=== PATIENT | female | born 1935 | race Caucasian/White ===

== ENCOUNTER 2017-06-24 13:05 | Emergency (ER) | payer OTHER ==
[~2017-06-24 13:05] MED LIST: ACET-2743 PO; ALBU90AE IH; ASCO1TAB43 PO; CALC-1038 PO; CHOL100040 PO; CLOP75TA32 PO; DIPH25TA20 PO; ESTR1PAT87 TD; FLUTICASONE NASAL NASAL; GUAI400T79 PO; LACT1CAP62 PO; MONT10TA24 PO; OMEG1CAP67 PO; PANT20TA12 PO; SENN-107 PO; SPIRIVA RESPIMAT IH
[2017-06-24 13:42] LABS: BASOPHILS % (AUTO) 0.5 % (0.0-5.0); EOSINOPHILS % (AUTO) 0.1 % (0.0-8.0); HEMATOCRIT 37.8 % (36-48); LYMPHOCYTES % (AUTO) 2.4 % (21.0-51.0); MEAN CORPUSCULAR HEMOGLOBIN 29.7 pg (27.0-33.0); MEAN CORPUSCULAR HGB CONC 33.2 g/dL (32.0-36.0); MEAN CORPUSCULAR VOLUME 89.3 fL (79-99); MONOCYTES % (AUTO) 9.3 % (3.0-13.0); NEUTROPHILS % (AUTO) 87.7 % (40.0-77.0); NUCLEATED RED BLOOD CELLS 0.1 % (0.0-0.19); PLATELET COUNT (AUTO) 196 K/uL (130-400); RED BLOOD CELL COUNT(AUTO) 4.23 MIL/uL (4.00-5.50); RED CELL DISTRIBUTION WIDTH 14.5 % (11.0-15.5); WHITE BLOOD COUNT (AUTO) 8.9 K/uL (4.8-10.8)
[2017-06-24] MEDS ORDERED: SODIUM CHLORIDE 0.9% 1000ML 1,000 ML IV ONE ×2 (13:43→14:55)
[2017-06-24] MEDS ORDERED: ACETAMINOPHEN 325 MG TAB ONE (13:43)
[2017-06-24 13:47] LABS: CARBON DIOXIDE 28 mmol/L (21-32); CHLORIDE 97 mmol/L (101-111); CREATININE 0.7 mg/dL (0.5-1.5); GLOMERULAR FILTR. RATE CALC 85 mL/min (>60); GLUCOSE,RANDOM 115 mg/dL (70-105); POTASSIUM 3.8 mmol/L (3.5-5.1); SODIUM SERUM 131 mmol/L (136-145); UREA NITROGEN, BLOOD 10 mg/dL (7-18)
[2017-06-24 13:49] LABS: INR 0.94 (0.85-1.15); PARTIAL THROMBOPLASTIN TIME 23.8 SEC (26.3-35.5); PROTHROMBIN TIME 9.9 SEC (9.6-11.6)
[2017-06-24 13:57] LABS: APPEARANCE,URINE Clear (CLEAR); BILIRUBIN,URINE Negative (NEGATIVE); COLOR,URINE Yellow (YELLOW); GLUCOSE, URINE (UA) Negative (NEGATIVE); KETONES,URINE Negative (NEGATIVE); LEUKOCYTE ESTERASE ,URINE Small (NEGATIVE); NITRATE,URINE Negative (NEGATIVE); OCCULT BLOOD,URINE Negative (NEGATIVE); PROTEIN,URINE Trace (NEGATIVE)
[2017-06-24 14:02] LABS: ALANINE AMINOTRANSFERASE 40 U/L (12-78); ALBUMIN 3.3 g/dL (3.5-5.0); ASPARTATE AMINOTRANSFERASE 48 U/L (10-37); BILIRUBIN,TOTAL 0.2 mg/dL (0.2-1.0); CREATINE KINASE MB < 0.5 ng/mL (0.5-3.6); CREATINE KINASE, TOTAL 115 U/L (21-232); MYOGLOBIN 72 ng/mL (10-92); TOTAL PROTEIN, SERUM 6.8 g/dL (6.0-8.3); TROPONIN I < 0.04 ng/mL (0.00-0.06)
[2017-06-24 14:03] LABS: RBC,URINE None Seen /HPF (0-1)
[2017-06-24 14:04] LABS: BACTERIA,URINE Rare /HPF (None Seen); WBC,URINE 0-1 /HPF (0-1)
[2017-06-24] MEDS ORDERED: IPRATROPIUM/ALBUTEROL SULFATE 3 ML SOLUTION IH ONE (14:51)
[2017-06-24] MEDS ORDERED: METHYLPREDNISOLONE SOD SUCC 125MG/2ML VIAL ONE (14:55)
[2017-06-24] MEDS ORDERED: OSELTAMIVIR PHOSPHATE 75 MG CAP ONE (14:57)
== END 2017-06-24 17:54 | disposition home or self-care (01) ==
LOC: EDH 13:05
DX: J44.1 Chronic obstructive pulmonary disease with (acute) exacerbation (principal); J10.1 Influenza due to other identified influenza virus with other respiratory manifestations; I25.10 Atherosclerotic heart disease of native coronary artery without angina pectoris; Z88.6 Allergy status to analgesic agent; Z87.891 Personal history of nicotine dependence; Z90.49 Acquired absence of other specified parts of digestive tract; Z90.710 Acquired absence of both cervix and uterus
CPT/HCPCS: 36415; 80053; 81001; 82550; 82553; 83605; 83874; 84484; 85025; 85610; 85730; 87040 ×2; 87088; 87804 ×2; 93005; 94640; 96361; 96374; 99285; J2930; J7030 ×2; 71010

== ENCOUNTER 2017-07-31 23:46 | Observation (INO) | payer OTHER ==
[~2017-07-31] VITALS: Ht 167.6 cm; Wt 76.1 kg
[2017-08-01 00:26] LABS: RAPID GROUP A STREP NEGATIVE (NEGATIVE)
[2017-08-01] MEDS ORDERED: IPRATROPIUM/ALBUTEROL SULFATE 3 ML SOLUTION IH ONE ×2 (00:28→06:22)
[2017-08-01 00:39] LABS: ABG BASE EXCESS 0.2 mmol/L (-2.0-3.0); ABG HCO3 23.3 mmol/L (21.0-28.0); ABG OXYGEN SATURATION 93.9 % (95.0-99.0); ABG PCO2 34 mmHg (32-45)
[2017-08-01 00:40] LABS: BASOPHILS % (AUTO) 0.1 % (0.0-5.0); EOSINOPHILS % (AUTO) 0.1 % (0.0-8.0); HEMATOCRIT 36.5 % (36-48); LYMPHOCYTES % (AUTO) 3.4 % (21.0-51.0); MEAN CORPUSCULAR HEMOGLOBIN 29.1 pg (27.0-33.0); MEAN CORPUSCULAR HGB CONC 33.7 g/dL (32.0-36.0); MEAN CORPUSCULAR VOLUME 86.4 fL (79-99); MONOCYTES % (AUTO) 6.3 % (3.0-13.0); NEUTROPHILS % (AUTO) 90.1 % (40.0-77.0); PLATELET COUNT (AUTO) 375 K/uL (130-400); RED BLOOD CELL COUNT(AUTO) 4.23 MIL/uL (4.00-5.50); RED CELL DISTRIBUTION WIDTH 14.5 % (11.0-15.5); WHITE BLOOD COUNT (AUTO) 19.6 K/uL (4.8-10.8)
[2017-08-01 00:45] LABS: PARTIAL THROMBOPLASTIN TIME 26.9 SEC (26.3-35.5); PROTHROMBIN TIME 10.5 SEC (9.6-11.6)
[2017-08-01 00:54] LABS: ALBUMIN 2.6 g/dL (3.5-5.0); BILIRUBIN,TOTAL 0.8 mg/dL (0.2-1.0); CREATININE 0.7 mg/dL (0.5-1.5); POTASSIUM 3.9 mmol/L (3.5-5.1); TOTAL PROTEIN, SERUM 7.4 g/dL (6.0-8.3)
[2017-08-01 01:03] LABS: B-TYPE NATRIURETIC PEPTIDE 244 pg/mL (0-100)
[2017-08-01] MEDS ORDERED: LEVOFLOXACIN 500 MG TABLET ONE (01:29)
[2017-08-01] MEDS ORDERED: METHYLPREDNISOLONE SOD SUCC 125MG/2ML VIAL ONE (01:29)
[2017-08-01] MEDS ORDERED: ALBUTEROL SULFATE 0.083% 2.5 MG/3 ML INH IH ONE ×2 (01:42)
[2017-08-01] MEDS ORDERED: ONDANSETRON HCL 4 MG/2 ML VIAL ONE (01:43)
[2017-08-01] MEDS ORDERED: SODIUM CHLORIDE 0.9% 1000ML 1,000 ML IV SCH (02:01)
[2017-08-01] MEDS: LEVOFLOXACIN 500 MG/D5W 100 ML 100 ML IV SCH (02:15)
[2017-08-01] MEDS ORDERED: POTASSIUM CHLORIDE 10% ELIXIR 20 MEQ/15 ML UDCUP PO PRN (02:15)
[2017-08-01] MEDS ORDERED: POTASSIUM CHLORIDE 20MEQ/100ML 100 ML IV PRN (02:15)
[2017-08-01] MEDS ORDERED: POTASSIUM CHLORIDE 20 MEQ ERTAB PO PRN (02:15)
[2017-08-01] MEDS ORDERED: ACETAMINOPHEN 325 MG TAB PO PRN ×2 (02:15)
[2017-08-01] MEDS ORDERED: ONDANSETRON HCL 4 MG/2 ML VIAL IV PRN (02:15)
[2017-08-01] MEDS ORDERED: HYDRALAZINE HCL 20 MG/ML VIAL IV PRN (02:15)
[2017-08-01] MEDS ORDERED: LIDOCAINE HCL-MPF 1% 2ML VIAL IVP PRN (02:15)
[2017-08-01 06:11] LABS: HEMATOCRIT 31.3 % (36-48); MEAN CORPUSCULAR HEMOGLOBIN 29.1 pg (27.0-33.0); MEAN CORPUSCULAR HGB CONC 33.7 g/dL (32.0-36.0); MEAN CORPUSCULAR VOLUME 86.3 fL (79-99); PLATELET COUNT (AUTO) 334 K/uL (130-400); RED BLOOD CELL COUNT(AUTO) 3.62 MIL/uL (4.00-5.50); WHITE BLOOD COUNT (AUTO) 18.1 K/uL (4.8-10.8)
[2017-08-01 06:33] LABS: CREATINE KINASE MB 2.8 ng/mL (0.5-3.6); CREATININE 0.7 mg/dL (0.5-1.5); POTASSIUM 4.1 mmol/L (3.5-5.1); TROPONIN I 0.24 ng/mL (0.00-0.06)
[2017-08-01] MEDS: IPRATROPIUM/ALBUTEROL SULFATE 3 ML SOLUTION IH SCH ×4 (06:50→23:27)
[2017-08-01] MEDS: BENZONATATE 100 MG CAPSULE PO SCH ×3 (09:00→20:27)
[2017-08-01 09:06] VITALS: BP 145/73
[2017-08-01] MEDS: METHYLPREDNISOLONE SOD SUCC 125MG/2ML VIAL IV SCH ×2 (09:36→17:32)
[2017-08-01] MEDS: ENOXAPARIN SODIUM 40 MG/0.4 ML SYRINGE SQ SCH (09:38)
[2017-08-01] MEDS ORDERED: IOPAMIDOL-370 75 ML VIAL IV ONE (09:40)
[2017-08-01] MEDS ORDERED: ROSU5TAB PO (11:11)
[2017-08-01] MEDS ORDERED: ACETAMINOPHEN-CODEINE 300/30MG TAB PO PRN (11:15)
[2017-08-01] MEDS: ACETAMINOPHEN-CODEINE 300/30MG TAB PO PRN (13:21)
[2017-08-01] MEDS: FAMOTIDINE 20MG TAB 20 MG TAB PO SCH ×2 (13:50→20:27)
[2017-08-01] MEDS: SODIUM CHLORIDE 0.9% 1000ML 1,000 ML IV SCH (14:27)
[2017-08-01 16:00] VITALS: BP 138/72
[2017-08-01] MEDS: ACETYLCYSTEINE 20% 200MG/ML 4ML VIAL IH SCH ×2 (17:21→23:28)
[2017-08-01 19:28] VITALS: BP 138/71
[2017-08-01] MEDS: ATORVASTATIN CALCIUM 10 MG TABLET PO SCH (20:27)
[2017-08-01] MEDS: FLUTICASONE PROPIONATE 50MCG/SPRAY 16 GM BOTTLE EN SCH (20:27)
[2017-08-01] MEDS: GABAPENTIN 100 MG CAPSULE PO SCH (20:28)
[2017-08-01 23:18] VITALS: BP 147/66
[2017-08-02] MEDS: METHYLPREDNISOLONE SOD SUCC 125MG/2ML VIAL IV SCH ×3 (00:09→21:07)
[2017-08-02 03:00] VITALS: BP 133/58
[2017-08-02] MEDS: LEVOFLOXACIN 500 MG/D5W 100 ML 100 ML IV SCH (03:02)
[2017-08-02] MEDS: IPRATROPIUM/ALBUTEROL SULFATE 3 ML SOLUTION IH SCH ×4 (05:51→23:07)
[2017-08-02] MEDS: IPRATROPIUM 0.5 MG/2.5 ML INH IH SCH ×3 (06:00→18:00)
[2017-08-02 06:05] LABS: HEMATOCRIT 30.6 % (36-48); MEAN CORPUSCULAR VOLUME 85.8 fL (79-99); PLATELET COUNT (AUTO) 417 K/uL (130-400); RED BLOOD CELL COUNT(AUTO) 3.56 MIL/uL (4.00-5.50); RED CELL DISTRIBUTION WIDTH 14.6 % (11.0-15.5); WHITE BLOOD COUNT (AUTO) 15.7 K/uL (4.8-10.8)
[2017-08-02 06:13] LABS: CREATININE 0.8 mg/dL (0.5-1.5); POTASSIUM 4.6 mmol/L (3.5-5.1)
[2017-08-02 08:00] VITALS: BP 162/93
[2017-08-02] MEDS ORDERED: ESTRADIOL PO SCH (09:00)
[2017-08-02] MEDS: FAMOTIDINE 20MG TAB 20 MG TAB PO SCH ×2 (10:16→21:08)
[2017-08-02] MEDS: GABAPENTIN 100 MG CAPSULE PO SCH ×2 (10:16→21:08)
[2017-08-02] MEDS: BENZONATATE 100 MG CAPSULE PO SCH ×3 (10:16→21:08)
[2017-08-02] MEDS: ENOXAPARIN SODIUM 40 MG/0.4 ML SYRINGE SQ SCH (10:17)
[2017-08-02] MEDS: FLUTICASONE PROPIONATE 50MCG/SPRAY 16 GM BOTTLE EN SCH ×2 (10:17→21:06)
[2017-08-02] MEDS: MONTELUKAST SODIUM 10 MG TAB PO SCH (11:30)
[2017-08-02] MEDS: ALPRAZOLAM 0.25 MG TABLET PO PRN ×2 (11:30→21:08)
[2017-08-02] MEDS: CLOPIDOGREL BISULFATE 75 MG TAB PO SCH (11:30)
[2017-08-02 11:48] VITALS: BP 146/74
[2017-08-02 15:38] VITALS: BP 124/63
[2017-08-02] MEDS ORDERED: ACETYLCYSTEINE 20% 200MG/ML 4ML VIAL ONE (19:09)
[2017-08-02] MEDS: ACETYLCYSTEINE 20% 200MG/ML 4ML VIAL IH SCH (19:15)
[2017-08-02 19:40] VITALS: BP 116/59
[2017-08-02] MEDS: GUAIFENESIN-DM 200/20 MG 10 ML PO PRN (21:08)
[2017-08-02] MEDS: ATORVASTATIN CALCIUM 10 MG TABLET PO SCH (21:08)
[2017-08-02] MEDS: SODIUM CHLORIDE 0.9% 1000ML 1,000 ML IV SCH (21:10)
[2017-08-02 23:58] VITALS: BP 132/64
[2017-08-03] MEDS: LEVOFLOXACIN 500 MG/D5W 100 ML 100 ML IV SCH (02:23)
[2017-08-03 03:55] VITALS: BP 144/73
[2017-08-03 05:47] LABS: CREATININE 0.7 mg/dL (0.5-1.5); POTASSIUM 5.1 mmol/L (3.5-5.1)
[2017-08-03] MEDS: IPRATROPIUM 0.5 MG/2.5 ML INH IH SCH ×3 (06:00→12:00)
[2017-08-03] MEDS: IPRATROPIUM/ALBUTEROL SULFATE 3 ML SOLUTION IH SCH ×2 (07:01→11:39)
[2017-08-03 08:00] VITALS: BP 149/65
[2017-08-03] MEDS: CLOPIDOGREL BISULFATE 75 MG TAB PO SCH (08:28)
[2017-08-03] MEDS: BENZONATATE 100 MG CAPSULE PO SCH (08:29)
[2017-08-03] MEDS: GABAPENTIN 100 MG CAPSULE PO SCH (08:29)
[2017-08-03] MEDS: MONTELUKAST SODIUM 10 MG TAB PO SCH (08:29)
[2017-08-03] MEDS: FAMOTIDINE 20MG TAB 20 MG TAB PO SCH (08:29)
[2017-08-03] MEDS: GUAIFENESIN-DM 200/20 MG 10 ML PO PRN (08:29)
[2017-08-03] MEDS: METHYLPREDNISOLONE SOD SUCC 125MG/2ML VIAL IV SCH (08:30)
[2017-08-03] MEDS: ENOXAPARIN SODIUM 40 MG/0.4 ML SYRINGE SQ SCH (08:30)
[2017-08-03] MEDS: ACETAMINOPHEN-CODEINE 300/30MG TAB PO PRN (08:31)
[2017-08-03] MEDS ORDERED: LACTOBACILLUS RHAMNOSUS GG 1 EACH CAP.SPRINK PO SCH (09:00)
[2017-08-03] MEDS ORDERED: FISH OIL 1000 MG/CAP PO SCH (09:00)
[2017-08-03] MEDS ORDERED: CALCIUM CARBONATE 500 MG TABLET PO SCH (09:00)
== END 2017-08-03 13:30 | disposition home or self-care (01) ==
LOC: EDH 23:46 → EDHIP 08-01 01:20 → 4CH 08-01 08:23
PROVIDERS: ADMIT Family Medicine; ATTEND Family Medicine
DX: J18.9 Pneumonia, unspecified organism (principal); J44.1 Chronic obstructive pulmonary disease with (acute) exacerbation; I25.10 Atherosclerotic heart disease of native coronary artery without angina pectoris; J44.0 Chronic obstructive pulmonary disease with (acute) lower respiratory infection; E87.1 Hypo-osmolality and hyponatremia; Z87.891 Personal history of nicotine dependence; Z82.49 Family history of ischemic heart disease and other diseases of the circulatory system; F41.9 Anxiety disorder, unspecified
CPT/HCPCS: 36415 ×3; 36600; 71045; 71275; 80048 ×3; 80053; 82550; 82553; 82803; 83605; 83874; 83880; 84484 ×2; 85025; 85027 ×2; 85378; 85610; 85730; 87071; 87205; 87804 ×2; 87880; 93005; 94640 ×13; 94664; 94760 ×2; 96361 ×3; 96365; 96366; 96372 ×3; 96375; 96376 ×3; 99291; G0378 ×60; J1650 ×3; J1956 ×2; J2405; J2930 ×7; J7030 ×2; J7608 ×5; Q9967

== ENCOUNTER → 2017-09-07 | Outpatient (CLI) | payer OTHER ==
[~2017-09-07] MED LIST changes: +ROSU5TAB PO
== END | disposition home or self-care (01) ==
LOC: RAH 12:13
PROVIDERS: ATTEND Internal Medicine Critical Care Medicine
DX: R05 Cough (principal)
CPT/HCPCS: 71046

== ENCOUNTER → 2018-05-01 | Outpatient (CLI) | payer OTHER | END | disposition home or self-care (01) | LOC: SHCH 15:57 | PROVIDERS: ATTEND Internal Medicine Cardiovascular Disease | DX: I25.10 Atherosclerotic heart disease of native coronary artery without angina pectoris (principal) | CPT/HCPCS: 93306 ==

== ENCOUNTER → 2018-08-09 | Outpatient (CLI) | payer OTHER ==
[~2018-08-09] MED LIST changes: +AZIT250T9 PO; +BUDE10.2 IH; +CHOL400C9 PO; -CLOP75TA32 PO; +DILT180C51 PO; +DIPH50CA4 PO; +DOCU-116 PO; +ESTR1TAB21 PO; +FERR159T2 PO; +FISH1CAP49 PO; +LEVO500T2 PO; +LORA10CA PO; +METH4TAB3 PO; +POLY17PO4 PO; +PSYL3.4P5 PO; +RIVA20TA PO; +VIT1CAPS47 PO
== END | disposition home or self-care (01) ==
LOC: RAH 12:59
PROVIDERS: ATTEND Internal Medicine Critical Care Medicine
DX: R91.8 Other nonspecific abnormal finding of lung field (principal)
CPT/HCPCS: 71250

== ENCOUNTER → 2019-05-28 | Outpatient (CLI) | payer OTHER | END | disposition home or self-care (01) | LOC: RAH 13:04 | PROVIDERS: ATTEND Internal Medicine Critical Care Medicine | DX: R91.8 Other nonspecific abnormal finding of lung field (principal) | CPT/HCPCS: 71250 ==

== ENCOUNTER 2019-06-03 11:20 | Observation (INO) | payer OTHER ==
[~2019-06-03] VITALS: Ht 167.6 cm; Wt 65.9 kg
[2019-06-03 11:38] LABS: BASOPHILS % (AUTO) 0.3 % (0.0-5.0); EOSINOPHILS % (AUTO) 0.7 % (0.0-8.0); HEMATOCRIT 35.1 % (36-48); LYMPHOCYTES % (AUTO) 6.2 % (21.0-51.0); MEAN CORPUSCULAR HEMOGLOBIN 29.9 pg (27.0-33.0); MEAN CORPUSCULAR HGB CONC 32.8 g/dL (32.0-36.0); MEAN CORPUSCULAR VOLUME 91.2 fL (79-99); NEUTROPHILS % (AUTO) 85.4 % (40.0-77.0); PLATELET COUNT (AUTO) 233 K/uL (130-400); RED BLOOD CELL COUNT(AUTO) 3.85 MIL/uL (4.00-5.50); RED CELL DISTRIBUTION WIDTH 13.7 % (11.0-15.5); WHITE BLOOD COUNT (AUTO) 12.2 K/uL (4.8-10.8)
[2019-06-03 11:49] LABS: ALBUMIN 2.9 g/dL (3.5-5.0); BILIRUBIN,TOTAL 0.5 mg/dL (0.2-1.0); CREATININE 0.8 mg/dL (0.5-1.5); POTASSIUM 4.5 mmol/L (3.5-5.1); TOTAL PROTEIN, SERUM 6.5 g/dL (6.0-8.3)
[2019-06-03 11:52] LABS: INR 0.95 (0.85-1.15); PARTIAL THROMBOPLASTIN TIME 28.5 SEC (26.3-35.5)
[2019-06-03] MEDS ORDERED: ALBUTEROL SULFATE 0.083% 2.5 MG/3 ML INH IH ONE (12:25)
[2019-06-03 13:13] LABS: APPEARANCE,URINE Cloudy (CLEAR); BILIRUBIN,URINE Negative (NEGATIVE); COLOR,URINE Yellow (YELLOW); GLUCOSE, URINE (UA) Negative (NEGATIVE); KETONES,URINE Negative (NEGATIVE); LEUKOCYTE ESTERASE ,URINE Small (NEGATIVE); NITRATE,URINE Negative (NEGATIVE); OCCULT BLOOD,URINE Negative (NEGATIVE); PH,URINE 6.5 (5.0-8.0); PROTEIN,URINE Negative (NEGATIVE)
[2019-06-03] MEDS ORDERED: CEFTRIAXONE SODIUM 1 GM ONE (13:14)
[2019-06-03] MEDS ORDERED: SODIUM CHLORIDE 0.9% 50 ML IV ONE (13:15)
[2019-06-03 13:28] LABS: BACTERIA,URINE Many /HPF (None Seen); MUCUS,URINE Few LPF (None Seen); SQUAMOUS EPITHELIAL CELL,UR 0-2 /HPF (0-2)
[2019-06-03] MEDS ORDERED: AZITHROMYCIN 500MG+NS 250ML 250 ML IV ONE (13:37)
[2019-06-03] MEDS ORDERED: DiphenhydrAMINE HCL 50 MG/ML VIAL IV PRN (15:30)
[2019-06-03] MEDS ORDERED: ACETAMINOPHEN 325 MG TAB PO PRN ×2 (15:30)
[2019-06-03] MEDS ORDERED: MAG HYDROX/AL HYDROX/SIMETH ES 30 ML SUSP UDCUP PO PRN (15:30)
[2019-06-03] MEDS ORDERED: HYDRALAZINE HCL 20 MG/ML VIAL IV PRN (15:30)
[2019-06-03] MEDS ORDERED: GUAIFENESIN-DM 200/20 MG 10 ML PO PRN (15:30)
[2019-06-03] MEDS ORDERED: LACTULOSE 20 GM/30 ML UDCUP PO PRN (15:30)
[2019-06-03] MEDS ORDERED: ONDANSETRON HCL 4 MG/2 ML VIAL IV PRN (15:30)
[2019-06-03] MEDS ORDERED: POTASSIUM CHLORIDE 10% ELIXIR 20 MEQ/15 ML UDCUP PO PRN (15:30)
[2019-06-03] MEDS: AZITHROMYCIN 500MG+NS 250ML 250 ML IV SCH (15:30)
[2019-06-03] MEDS ORDERED: POTASSIUM CHLORIDE 20MEQ/100ML 100 ML IV PRN (15:30)
[2019-06-03] MEDS ORDERED: POTASSIUM CHLORIDE 20 MEQ ERTAB PO PRN (15:30)
[2019-06-03] MEDS ORDERED: LIDOCAINE HCL-MPF 1% 2ML VIAL IV PRN (15:30)
[2019-06-03] MEDS ORDERED: ZOLPIDEM TARTRATE 5 MG TAB PO PRN (15:30)
[2019-06-03] MEDS ORDERED: NITROGLYCERIN 0.4 MG SL TAB SL PRN (15:30)
[2019-06-03] MEDS: CEFTRIAXONE SODIUM 1 GM IV SCH (15:30)
[2019-06-03] MEDS ORDERED: DIPHENHYDRAMINE HCL 25 MG CAPSULE PO PRN (15:30)
[2019-06-03] MEDS ORDERED: IPRATROPIUM/ALBUTEROL SULFATE 3 ML SOLUTION IH SCH (18:00)
[2019-06-03] MEDS: IPRATROPIUM 0.5 MG/2.5 ML INH IH SCH ×2 (18:17→23:27)
[2019-06-03] MEDS ORDERED: ACETAMINOPHEN 325 MG TAB ONE (19:42)
[2019-06-03 21:15] VITALS: BP 139/65
[2019-06-03] MEDS: FUROSEMIDE 10 MG/ML 2ML VIAL IV SCH (22:17)
[2019-06-03] MEDS: BENZONATATE 100 MG CAPSULE PO SCH (22:17)
[2019-06-03] MEDS: FAMOTIDINE 20MG TAB 20 MG TAB PO SCH (22:17)
[2019-06-03] MEDS ORDERED: SODIUM CHLORIDE 3% FOR INHALATION 4 ML/AMP VIAL.NEB IH ONE (23:55)
[2019-06-04] VITALS: BP 132/58
[2019-06-04] MEDS ORDERED: SODIUM CHLORIDE 3% FOR INHALATION 4 ML/AMP VIAL.NEB IH ONE (01:41)
[2019-06-04] MEDS: IPRATROPIUM 0.5 MG/2.5 ML INH IH SCH ×4 (02:57→13:34)
[2019-06-04 04:00] VITALS: BP 145/64
[2019-06-04 05:38] LABS: BASOPHILS % (AUTO) 0.4 % (0.0-5.0); EOSINOPHILS % (AUTO) 1.3 % (0.0-8.0); HEMATOCRIT 34.5 % (36-48); LYMPHOCYTES % (AUTO) 12.1 % (21.0-51.0); MEAN CORPUSCULAR HEMOGLOBIN 29.7 pg (27.0-33.0); MEAN CORPUSCULAR HGB CONC 32.8 g/dL (32.0-36.0); MEAN CORPUSCULAR VOLUME 90.6 fL (79-99); MONOCYTES % (AUTO) 9.6 % (3.0-13.0); NEUTROPHILS % (AUTO) 76.3 % (40.0-77.0); PLATELET COUNT (AUTO) 228 K/uL (130-400); RED BLOOD CELL COUNT(AUTO) 3.81 MIL/uL (4.00-5.50); RED CELL DISTRIBUTION WIDTH 13.8 % (11.0-15.5); WHITE BLOOD COUNT (AUTO) 9.4 K/uL (4.8-10.8)
[2019-06-04 05:54] LABS: CREATININE 0.8 mg/dL (0.5-1.5); POTASSIUM 3.9 mmol/L (3.5-5.1)
[2019-06-04 08:00] VITALS: BP 157/70
[2019-06-04] MEDS ORDERED: ENOXAPARIN SODIUM 30 MG/0.3 ML SQ SCH (09:00)
[2019-06-04] MEDS ORDERED: PREDNISONE 20 MG TABLET PO SCH (09:00)
[2019-06-04] MEDS: BENZONATATE 100 MG CAPSULE PO SCH ×2 (09:18→14:53)
[2019-06-04] MEDS: FUROSEMIDE 10 MG/ML 2ML VIAL IV SCH (09:18)
[2019-06-04] MEDS: FAMOTIDINE 20MG TAB 20 MG TAB PO SCH (09:18)
[2019-06-04 11:51] VITALS: BP 136/62
--- NOTE | 2019-06-04 14:44 | NUR ---
DC PLAN PER PATIENT IS INDEPENDENT, LIVES WITH SPOUSE, NO PROVIDER OR DME, AND FEELS SAFE TO RETURN HOME. Addendum: 06/04/19 at 1444 by CONCHITA MEYER RN CM Amended: Links added.
[2019-06-04] MEDS: CEFTRIAXONE SODIUM 1 GM IV SCH (15:30)
[2019-06-04] MEDS: AZITHROMYCIN 500MG+NS 250ML 250 ML IV SCH (15:30)
--- NOTE | 2019-06-04 17:50 | NUR ---
DSICHARGE SUMMARY REVIEW WITH PT APPT . DONE TO FOLLOW WITH DR. ALMONTE IN AM CARE. ANTIBOTICS REVIEW AND SIDE EFFECTS SL TO HER RFA DC, WITH NO REDNESS NOTED OR HEMATOMA , PEDRO KENT APPLICATION ON ,DENIES ANY SOB. RELEASE ,
== END 2019-06-04 17:05 | disposition home or self-care (01) ==
LOC: EDH 11:20 → EDHIP 14:35 → INTOOBSV 14:35 → 3BH 20:51
PROVIDERS: ADMIT Internal Medicine Pulmonary Disease; ATTEND Internal Medicine Pulmonary Disease
DX: J44.0 Chronic obstructive pulmonary disease with (acute) lower respiratory infection (principal); J18.1 Lobar pneumonia, unspecified organism; N39.0 Urinary tract infection, site not specified; R91.1 Solitary pulmonary nodule; E78.5 Hyperlipidemia, unspecified; I25.10 Atherosclerotic heart disease of native coronary artery without angina pectoris; I10 Essential (primary) hypertension; I48.91 Unspecified atrial fibrillation; F17.210 Nicotine dependence, cigarettes, uncomplicated; Z79.01 Long term (current) use of anticoagulants; Z79.51 Long term (current) use of inhaled steroids; Z79.899 Other long term (current) drug therapy
CPT/HCPCS: 36415; 71045; 71046; 80048; 80053; 81001; 83880; 84484; 85025; 85610; 85730; 87040; 87071; 87077; 87088; 87186; 87205; 87804; 93005; 94640; 94664; 94667; 94668; 96372; 96374; 96376; G0378; J0456; J0696; J1650; J1940

== ENCOUNTER → 2020-08-13 | Outpatient (CLI) | payer OTHER | END | disposition home or self-care (01) | LOC: RAH 13:40 | PROVIDERS: ATTEND Internal Medicine Critical Care Medicine | DX: J47.9 Bronchiectasis, uncomplicated (principal); R91.8 Other nonspecific abnormal finding of lung field; I25.10 Atherosclerotic heart disease of native coronary artery without angina pectoris | CPT/HCPCS: 71250 ==

== ENCOUNTER → 2020-10-18 | Outpatient (CLI) | payer OTHER ==
[~2020-10-18] MED LIST changes: -ACET-2743 PO; -ALBU90AE IH; -ASCO1TAB43 PO; -AZIT250T9 PO; -BUDE10.2 IH; -CALC-1038 PO; -CHOL100040 PO; -CHOL400C9 PO; -DILT180C51 PO; -DIPH25TA20 PO; -DIPH50CA4 PO; -DOCU-116 PO; -ESTR1PAT87 TD; -ESTR1TAB21 PO; -FERR159T2 PO; -FISH1CAP49 PO; -FLUTICASONE NASAL NASAL; -GUAI400T79 PO; +IOHEXOL-350 50ML VIAL IV ONE; -LACT1CAP62 PO; -LEVO500T2 PO; -LORA10CA PO; -METH4TAB3 PO; -MONT10TA24 PO; -OMEG1CAP67 PO; -PANT20TA12 PO; -POLY17PO4 PO; -PSYL3.4P5 PO; -RIVA20TA PO; -ROSU5TAB PO; -SENN-107 PO; -SPIRIVA RESPIMAT IH; -VIT1CAPS47 PO
== END | disposition home or self-care (01) ==
LOC: RAH 08:17
PROVIDERS: ATTEND Otolaryngology
DX: M27.9 Disease of jaws, unspecified (principal); J34.2 Deviated nasal septum
CPT/HCPCS: 70488; Q9967

== ENCOUNTER 2021-07-13 10:52 | Inpatient (IN) | payer OTHER ==
[~2021-07-13] VITALS: Ht 167.6 cm; Wt 68.3 kg
[~2021-07-13 10:52] MED LIST changes: +ALBU8.5H8 IH; +AMOX-429 PO; +CALC-1125 PO; +CHOL500045 PO; +CLOP75TA32 PO; +DILT180C86 PO; +DIPH25TA20 PO; +DOCU-116 PO; +ESTR1TAB21 PO; +FERR-82 PO; +FLUT16H NASAL; +FLUT8AER2 IH; -IOHEXOL-350 50ML VIAL IV ONE; +IPRA3AMP24 IH; +L.AC1CAP6 PO; +LORA10TA7 PO; +MONT-39 PO; +OMEG-148 PO; +PANT20TA18 PO; +PRAV20TA4 PO; +PRED20TA3 PO
[2021-07-13 12:18] LABS: BASOPHILS % (AUTO) 0.1 % (0.0-5.0); EOSINOPHILS % (AUTO) 0.3 % (0.0-8.0); HEMATOCRIT 34.1 % (36-48); LYMPHOCYTES % (AUTO) 2.6 % (21.0-51.0); MEAN CORPUSCULAR HGB CONC 32.8 g/dL (32.0-36.0); MEAN CORPUSCULAR VOLUME 91.4 fL (79-99); MONOCYTES % (AUTO) 5.7 % (3.0-13.0); NEUTROPHILS % (AUTO) 90.6 % (40.0-77.0); PLATELET COUNT (AUTO) 250 K/uL (130-400); RED BLOOD CELL COUNT(AUTO) 3.73 MIL/uL (4.00-5.50); RED CELL DISTRIBUTION WIDTH 13.9 % (11.0-15.5); WHITE BLOOD COUNT (AUTO) 10.6 K/uL (4.8-10.8)
[2021-07-13 12:30] LABS: INR 0.95 (0.85-1.15); PROTHROMBIN TIME 10.4 SEC (9.6-11.6)
[2021-07-13 12:33] LABS: ALBUMIN 2.7 g/dL (3.5-5.0); BILIRUBIN,TOTAL 0.4 mg/dL (0.2-1.0); CREATININE 0.8 mg/dL (0.5-1.5); MAGNESIUM 1.6 mg/dL (1.80-2.40); POTASSIUM 4.4 mmol/L (3.5-5.1); TOTAL PROTEIN, SERUM 5.9 g/dL (6.0-8.3)
[2021-07-13] MEDS ORDERED: CLOPIDOGREL 300MG TAB PO SCH (13:00)
[2021-07-13 13:04] LABS: APPEARANCE,URINE Clear (CLEAR); BILIRUBIN,URINE Negative (NEGATIVE); COLOR,URINE Yellow (YELLOW); GLUCOSE, URINE (UA) Negative (NEGATIVE); KETONES,URINE Negative (NEGATIVE); LEUKOCYTE ESTERASE ,URINE Negative (NEGATIVE); NITRATE,URINE Negative (NEGATIVE); OCCULT BLOOD,URINE Negative (NEGATIVE); PH,URINE 6.5 (5.0-8.0); PROTEIN,URINE Negative (NEGATIVE); UROBILINOGEN,URINE 0.2 mg/dL (0.2-1.0)
[2021-07-13 13:08] LABS: B-TYPE NATRIURETIC PEPTIDE 186 pg/mL (0-100)
[2021-07-13] MEDS ORDERED: ALBUTEROL 0.083% 2.5 MG/3 ML INH IH PRN (15:30)
[2021-07-13] MEDS ORDERED: MORPHINE 2 MG SYG IVP PRN (15:30)
[2021-07-13] MEDS ORDERED: HYDRALAZINE 20MG/ML VIAL IV PRN (15:30)
[2021-07-13] MEDS ORDERED: LACTULOSE 20 GM/30 ML UDCUP PO PRN (15:30)
[2021-07-13] MEDS ORDERED: LABETALOL 20MG SYG IV PRN (15:30)
[2021-07-13] MEDS ORDERED: ACETAMINOPHEN 325 MG TAB PO PRN (15:30)
[2021-07-13] MEDS: INSULIN HUMULIN R 100 UNIT/ML 3ML SQ SCH ×2 (16:30→21:05)
[2021-07-13] MEDS ORDERED: NITROGLYCERIN PATCH 0.2 MG/HR TD PRN (16:30)
[2021-07-13] MEDS ORDERED: GUAIFENESIN-DM 200/20 MG 10 ML ONE (17:36)
[2021-07-13] MEDS: METOPROLOL TARTRATE 25 MG TAB PO SCH (21:04)
[2021-07-13] MEDS: SIMVASTATIN 20 MG TABLET PO SCH (21:04)
[2021-07-13] MEDS: ENOXAPARIN SODIUM 80 MG/0.8 ML SQ SCH (21:06)
[2021-07-14] VITALS (13 sets, daily range): BP systolic 131–166; BP diastolic 50–87
[2021-07-14] MEDS: GUAIFENESIN-DM 200/20 MG 10 ML PO PRN (02:41)
[2021-07-14] MEDS: INSULIN HUMULIN R 100 UNIT/ML 3ML SQ SCH ×2 (06:10→21:20)
[2021-07-14 06:49] LABS: BASOPHILS % (AUTO) 0.4 % (0.0-5.0); EOSINOPHILS % (AUTO) 1.6 % (0.0-8.0); LYMPHOCYTES % (AUTO) 7.8 % (21.0-51.0); MEAN CORPUSCULAR HEMOGLOBIN 29.2 pg (27.0-33.0); MEAN CORPUSCULAR VOLUME 91.1 fL (79-99); MONOCYTES % (AUTO) 6.5 % (3.0-13.0); NEUTROPHILS % (AUTO) 82.9 % (40.0-77.0); PLATELET COUNT (AUTO) 245 K/uL (130-400); RED BLOOD CELL COUNT(AUTO) 3.84 MIL/uL (4.00-5.50); RED CELL DISTRIBUTION WIDTH 13.9 % (11.0-15.5); WHITE BLOOD COUNT (AUTO) 7.5 K/uL (4.8-10.8)
[2021-07-14 07:16] LABS: CREATININE 0.7 mg/dL (0.5-1.5); MAGNESIUM 1.5 mg/dL (1.80-2.40); PHOSPHORUS 3.3 mg/dL (2.5-4.9); POTASSIUM 4.1 mmol/L (3.5-5.1); THYROID STIMULATING HORMONE 1.43 uIU/mL (0.36-3.74)
[2021-07-14] MEDS: CLOPIDOGREL 75MG TAB PO SCH (09:00)
[2021-07-14] MEDS: ENOXAPARIN SODIUM 80 MG/0.8 ML SQ SCH (09:00)
[2021-07-14] MEDS: METOPROLOL TARTRATE 25 MG TAB PO SCH ×2 (09:00→20:35)
[2021-07-14] MEDS ORDERED: NITROGLYCERIN 50MG VIAL ONE (16:22)
[2021-07-14] MEDS ORDERED: FENTANYL CITRATE PF 50 MCG/1 ML 2ML VIAL ONE (16:22)
[2021-07-14] MEDS ORDERED: IOHEXOL-350 50ML VIAL IV ONE ×2 (16:22→17:21)
[2021-07-14] MEDS ORDERED: IOHEXOL 350 MG/ML 100ML INFUS..BTL IV ONE ×2 (16:22→17:23)
[2021-07-14] MEDS ORDERED: NICARDIPINE 25MG INJ IV ONE ×2 (16:22→16:58)
[2021-07-14] MEDS ORDERED: MIDAZOLAM HCL 1 MG/ML 2ML VIAL ONE (16:22)
[2021-07-14] MEDS ORDERED: BUPIVACAINE/PF 0.25% 10ML VIAL IJ ONE (16:22)
[2021-07-14] MEDS ORDERED: LIDOCAINE HCL 400MG/20ML VIAL ONE (16:23)
[2021-07-14] MEDS ORDERED: 0.9%NACL 1000ML 1,000 ML IV SCH (18:00)
[2021-07-14] MEDS ORDERED: BENZONATATE 100 MG CAPSULE PO PRN (19:00)
[2021-07-14] MEDS: SIMVASTATIN 20 MG TABLET PO SCH (20:36)
[2021-07-15 00:12] VITALS: BP 139/57
[2021-07-15 04:16] VITALS: BP 161/82
[2021-07-15 05:09] LABS: BASOPHILS % (AUTO) 0.3 % (0.0-5.0); EOSINOPHILS % (AUTO) 1.4 % (0.0-8.0); HEMATOCRIT 35.3 % (36-48); LYMPHOCYTES % (AUTO) 7.4 % (21.0-51.0); MEAN CORPUSCULAR HEMOGLOBIN 29.2 pg (27.0-33.0); MEAN CORPUSCULAR HGB CONC 31.7 g/dL (32.0-36.0); MEAN CORPUSCULAR VOLUME 91.9 fL (79-99); MONOCYTES % (AUTO) 6.7 % (3.0-13.0); NEUTROPHILS % (AUTO) 83.5 % (40.0-77.0); PLATELET COUNT (AUTO) 253 K/uL (130-400); RED BLOOD CELL COUNT(AUTO) 3.84 MIL/uL (4.00-5.50); RED CELL DISTRIBUTION WIDTH 13.7 % (11.0-15.5); WHITE BLOOD COUNT (AUTO) 6.9 K/uL (4.8-10.8)
[2021-07-15 05:24] LABS: ALBUMIN 2.2 g/dL (3.5-5.0); BILIRUBIN,TOTAL 0.4 mg/dL (0.2-1.0); CREATININE 0.7 mg/dL (0.5-1.5); POTASSIUM 4.3 mmol/L (3.5-5.1); TOTAL PROTEIN, SERUM 5.4 g/dL (6.0-8.3)
[2021-07-15] MEDS: INSULIN HUMULIN R 100 UNIT/ML 3ML SQ SCH ×4 (06:39→20:12)
[2021-07-15] MEDS: CLOPIDOGREL 75MG TAB PO SCH (10:07)
[2021-07-15] MEDS: METOPROLOL TARTRATE 25 MG TAB PO SCH ×2 (10:07→20:18)
[2021-07-15 11:52] VITALS: BP 122/76
[2021-07-15] MEDS: LACTULOSE 20 GM/30 ML UDCUP PO SCH ×2 (12:16→16:23)
[2021-07-15 16:50] VITALS: BP 152/79
[2021-07-15 16:51] VITALS: BP 125/55
[2021-07-15 20:00] VITALS: BP 128/58
[2021-07-15] MEDS ORDERED: TEMAZEPAM 15 MG CAPSULE ONE (20:14)
[2021-07-15] MEDS: SIMVASTATIN 20 MG TABLET PO SCH (20:19)
[2021-07-15] MEDS ORDERED: TEMAZEPAM 15 MG CAPSULE PO ONE (20:30)
[2021-07-16] VITALS: BP 140/55
[2021-07-16] MEDS: GUAIFENESIN-DM 200/20 MG 10 ML PO PRN ×2 (02:51→10:44)
[2021-07-16 04:00] VITALS: BP 126/60
[2021-07-16 05:08] LABS: BASOPHILS % (AUTO) 0.5 % (0.0-5.0); EOSINOPHILS % (AUTO) 2.2 % (0.0-8.0); HEMATOCRIT 32.2 % (36-48); LYMPHOCYTES % (AUTO) 6.3 % (21.0-51.0); MEAN CORPUSCULAR HEMOGLOBIN 29.1 pg (27.0-33.0); MEAN CORPUSCULAR HGB CONC 32.9 g/dL (32.0-36.0); MEAN CORPUSCULAR VOLUME 88.5 fL (79-99); NEUTROPHILS % (AUTO) 84.1 % (40.0-77.0); PLATELET COUNT (AUTO) 227 K/uL (130-400); RED BLOOD CELL COUNT(AUTO) 3.64 MIL/uL (4.00-5.50); RED CELL DISTRIBUTION WIDTH 13.2 % (11.0-15.5); WHITE BLOOD COUNT (AUTO) 6.5 K/uL (4.8-10.8)
[2021-07-16 05:20] LABS: ALBUMIN 2.1 g/dL (3.5-5.0); BILIRUBIN,TOTAL 0.3 mg/dL (0.2-1.0); CREATININE 0.7 mg/dL (0.5-1.5); POTASSIUM 4.4 mmol/L (3.5-5.1); TOTAL PROTEIN, SERUM 5.2 g/dL (6.0-8.3)
[2021-07-16] MEDS: LACTULOSE 20 GM/30 ML UDCUP PO SCH ×3 (05:27→11:44)
[2021-07-16] MEDS: INSULIN HUMULIN R 100 UNIT/ML 3ML SQ SCH ×2 (06:41→11:30)
[2021-07-16 08:00] VITALS: BP 144/63
[2021-07-16] MEDS ORDERED: METO25 PO (08:35)
[2021-07-16] MEDS ORDERED: Isosorbide Mono 30MG Sr Tab PO (08:35)
[2021-07-16] MEDS ORDERED: NITR0.4T SL (08:35)
[2021-07-16] MEDS ORDERED: ISOSORBIDE MONO 30MG SR TAB PO SCH (09:00)
[2021-07-16] MEDS: CLOPIDOGREL 75MG TAB PO SCH (10:09)
[2021-07-16] MEDS: METOPROLOL TARTRATE 25 MG TAB PO SCH (10:09)
[2021-07-16 12:00] VITALS: BP 114/62
== END 2021-07-16 15:30 | disposition home or self-care (01) | DRG 281 ==
LOC: EDH 10:52 → EDHIP 15:02 → OBSVTOIN 15:02 → 3CH 07-14 03:48 → 4CH 07-14 18:22
PROVIDERS: ADMIT Internal Medicine; ATTEND Internal Medicine
PROC: 4A023N7 Measurement of Cardiac Sampling and Pressure, Left Heart, Percutaneous Approach (ICD-10-PCS; principal; 2021-07-14)
PROC: B2111ZZ Fluoroscopy of Multiple Coronary Arteries using Low Osmolar Contrast (ICD-10-PCS; 2021-07-14)
PROC: B2151ZZ Fluoroscopy of Left Heart using Low Osmolar Contrast (ICD-10-PCS; 2021-07-14)
DX: I21.4 Non-ST elevation (NSTEMI) myocardial infarction (principal); E87.1 Hypo-osmolality and hyponatremia; I50.32 Chronic diastolic (congestive) heart failure; I47.1 Supraventricular tachycardia; J44.9 Chronic obstructive pulmonary disease, unspecified; I25.10 Atherosclerotic heart disease of native coronary artery without angina pectoris; I44.7 Left bundle-branch block, unspecified; Z96.1 Presence of intraocular lens; E78.5 Hyperlipidemia, unspecified; Z20.822 Contact with and (suspected) exposure to COVID-19; I48.0 Paroxysmal atrial fibrillation; K59.00 Constipation, unspecified; I11.0 Hypertensive heart disease with heart failure; E78.00 Pure hypercholesterolemia, unspecified; I35.0 Nonrheumatic aortic (valve) stenosis; I25.2 Old myocardial infarction; Z98.42 Cataract extraction status, left eye; Z98.41 Cataract extraction status, right eye; Z98.1 Arthrodesis status; Z87.01 Personal history of pneumonia (recurrent); Z95.5 Presence of coronary angioplasty implant and graft; Z87.891 Personal history of nicotine dependence; Z79.02 Long term (current) use of antithrombotics/antiplatelets; Z79.899 Other long term (current) drug therapy; Z88.6 Allergy status to analgesic agent; Z88.8 Allergy status to other drugs, medicaments and biological substances; Z90.710 Acquired absence of both cervix and uterus; Z90.49 Acquired absence of other specified parts of digestive tract
CPT/HCPCS: 36415; 71045; 80048; 80053; 81003; 82550; 82948; 83735; 83874; 83880; 84100; 84443; 84484; 85025; 85610; 87635; 87804; 93005; 93458; 94664; 99156; 99157; 99291; C9803; G0378; J1644; J1650; J1815; J2250; J3010; J3490; Q9967

== ENCOUNTER 2021-07-18 12:33 | Observation (INO) | payer OTHER ==
[~2021-07-18] VITALS: Ht 167.6 cm; Wt 73.1 kg
[~2021-07-18 12:33] MED LIST changes: -DILT180C86 PO; +Isosorbide Mono 30MG Sr Tab PO; +METO25 PO; +NITR0.4T SL
[2021-07-18] MEDS ORDERED: CEFTRIAXONE 1G VIAL IVP ONE (13:00)
[2021-07-18] MEDS ORDERED: AZITHROMYCIN 250 MG TABLET PO ONE (13:00)
[2021-07-18] MEDS ORDERED: ACETAMINOPHEN WITH CODEINE 1 TAB TAB PO ONE ×2 (13:00→20:30)
[2021-07-18] MEDS ORDERED: ACETAMINOPHEN WITH CODEINE 1 TAB TAB ONE (13:01)
[2021-07-18 13:11] LABS: ABG BASE EXCESS 0.2 mmol/L (-2.0-3.0); ABG HCO3 23.1 mmol/L (21.0-28.0); ABG OXYGEN SATURATION 95.1 % (95.0-99.0); ABG PCO2 33 mmHg (32-45)
[2021-07-18] MEDS ORDERED: IPRATROPIUM/ALBUTEROL SULFATE 3 ML SOLUTION IH ONE ×2 (13:14→13:30)
[2021-07-18 13:20] LABS: HEMATOCRIT 32.6 % (36-48); MEAN CORPUSCULAR HEMOGLOBIN 28.7 pg (27.0-33.0); MEAN CORPUSCULAR HGB CONC 32.8 g/dL (32.0-36.0); MEAN CORPUSCULAR VOLUME 87.4 fL (79-99); PLATELET COUNT (AUTO) 274 K/uL (130-400); RED BLOOD CELL COUNT(AUTO) 3.73 MIL/uL (4.00-5.50); RED CELL DISTRIBUTION WIDTH 13.2 % (11.0-15.5); WHITE BLOOD COUNT (AUTO) 9.3 K/uL (4.8-10.8)
[2021-07-18 13:37] LABS: CREATININE 0.7 mg/dL (0.5-1.5); POTASSIUM 4.9 mmol/L (3.5-5.1)
[2021-07-18 13:41] LABS: ALBUMIN 2.2 g/dL (3.5-5.0); BILIRUBIN,TOTAL 0.5 mg/dL (0.2-1.0); CRP QUANTITATIVE 110.2 mg/L (0.00-9.0); TOTAL PROTEIN, SERUM 5.9 g/dL (6.0-8.3)
[2021-07-18 14:04] LABS: B-TYPE NATRIURETIC PEPTIDE 267 pg/mL (0-100)
[2021-07-18 14:06] LABS: EOSINOPHILS % (MANUAL) 1 % (1-6); LYMPHOCYTES % (MANUAL) 4 % (22-44); MAN.DIFF COMMENT-IMPRESSION MANUAL DIFFERENTIAL; MONOCYTES % (MANUAL) 8 % (2-9); PLATELET MORPHOLOGY COMMENT ADEQUATE; SEGMENTED NEUTROPHILS % 87 % (40-70)
[2021-07-18 14:16] LABS: INFLUENZA TYPE A NEGATIVE FOR TYPE A (NEG); INFLUENZA TYPE B NEGATIVE FOR TYPE B (NEG)
[2021-07-18] MEDS: 0.9%NACL 1000ML 1,000 ML IV SCH ×2 (14:52→21:06)
[2021-07-18] MEDS ORDERED: ONDANSETRON 4MG INJ IVP PRN (15:00)
[2021-07-18] MEDS ORDERED: HYDRALAZINE 20MG/ML VIAL IV PRN (15:00)
[2021-07-18] MEDS ORDERED: LABETALOL 20MG SYG IV PRN (15:00)
[2021-07-18] MEDS ORDERED: LACTULOSE 20 GM/30 ML UDCUP PO PRN (15:00)
[2021-07-18] MEDS ORDERED: ALBUTEROL 0.083% 2.5 MG/3 ML INH IH PRN (15:00)
[2021-07-18] MEDS: INSULIN HUMULIN R 100 UNIT/ML 3ML SQ SCH ×2 (16:30→20:17)
[2021-07-18] MEDS: DEXAMETHASONE SOD PHOSPHATE 4 MG/ML 1ML VIAL IVP SCH (22:18)
[2021-07-18 23:49] LABS: APPEARANCE,URINE Clear (CLEAR); BILIRUBIN,URINE Negative (NEGATIVE); COLOR,URINE Yellow (YELLOW); GLUCOSE, URINE (UA) Negative (NEGATIVE); KETONES,URINE Negative (NEGATIVE); LEUKOCYTE ESTERASE ,URINE Negative (NEGATIVE); NITRATE,URINE Negative (NEGATIVE); OCCULT BLOOD,URINE Negative (NEGATIVE); PH,URINE 6.5 (5.0-8.0); PROTEIN,URINE Negative (NEGATIVE)
[2021-07-19] MEDS: GUAIFENESIN-DM 200/20 MG 10 ML PO PRN ×2 (00:31→05:37)
[2021-07-19] MEDS: ALBUTEROL 0.083% 2.5 MG/3 ML INH IH SCH ×5 (00:55→23:32)
[2021-07-19 04:46] LABS: BASOPHILS % (AUTO) 0.2 % (0.0-5.0); HEMATOCRIT 26.6 % (36-48); LYMPHOCYTES % (AUTO) 1.8 % (21.0-51.0); MEAN CORPUSCULAR HEMOGLOBIN 28.7 pg (27.0-33.0); MEAN CORPUSCULAR HGB CONC 32.7 g/dL (32.0-36.0); MEAN CORPUSCULAR VOLUME 87.8 fL (79-99); MONOCYTES % (AUTO) 1.5 % (3.0-13.0); NEUTROPHILS % (AUTO) 95.8 % (40.0-77.0); PLATELET COUNT (AUTO) 300 K/uL (130-400); RED BLOOD CELL COUNT(AUTO) 3.03 MIL/uL (4.00-5.50); RED CELL DISTRIBUTION WIDTH 13.5 % (11.0-15.5)
[2021-07-19 04:51] LABS: CREATININE 0.5 mg/dL (0.5-1.5); MAGNESIUM 1.7 mg/dL (1.80-2.40); PHOSPHORUS 4.2 mg/dL (2.5-4.9); POTASSIUM 4.8 mmol/L (3.5-5.1)
[2021-07-19] MEDS: 0.9%NACL 1000ML 1,000 ML IV SCH (07:00)
[2021-07-19] MEDS: INSULIN HUMULIN R 100 UNIT/ML 3ML SQ SCH ×4 (07:29→20:58)
[2021-07-19] MEDS ORDERED: 0.9% NACL 250ML 250 ML ONE (07:51)
[2021-07-19] MEDS ORDERED: KCL 20 MEQ ERTAB PO PRN (08:00)
[2021-07-19] MEDS ORDERED: LIDOCAINE HCL-MPF 1% 2ML VIAL IV PRN ×2 (08:00)
[2021-07-19] MEDS ORDERED: POTASSIUM CHLORIDE 10% ELIXIR 20 MEQ/15 ML UDCUP PO PRN (08:00)
[2021-07-19] MEDS ORDERED: POTASSIUM CHLORIDE 20MEQ/100ML 100 ML IV PRN ×2 (08:00)
[2021-07-19] MEDS ORDERED: MAGNESIUM 2GM PREMIX 50ML 50 ML IV PRN (08:00)
[2021-07-19] MEDS: PANTOPRAZOLE 40 MG TAB DR PO SCH (08:03)
[2021-07-19] MEDS: ACETAMINOPHEN 325 MG TAB PO PRN (08:41)
[2021-07-19] MEDS ORDERED: AZITHROMYCIN 500MG+NS 250ML IV SCH (09:00)
[2021-07-19] MEDS ORDERED: ENOXAPARIN SODIUM 30 MG/0.3 ML SQ SCH (09:00)
[2021-07-19 09:21] VITALS: BP 150/79
[2021-07-19] MEDS ORDERED: FURO20TA4 PO (09:23)
[2021-07-19] MEDS ORDERED: FLUT1BLS15 PO (09:23)
[2021-07-19 11:06] VITALS: BP 141/70
[2021-07-19 16:25] VITALS: BP 137/65
[2021-07-19] MEDS: FUROSEMIDE 40MG VIAL IV SCH (17:31)
[2021-07-19] MEDS ORDERED: IOHEXOL 350 MG/ML 100ML INFUS..BTL IV ONE (17:55)
[2021-07-19] MEDS: NITROGLYCERIN 1GM OINT 1 INCH/1GM TD SCH (19:30)
[2021-07-19 20:00] VITALS: BP 117/64
[2021-07-19] MEDS: DEXAMETHASONE SOD PHOSPHATE 4 MG/ML 1ML VIAL IVP SCH (20:59)
[2021-07-20] VITALS (7 sets, daily range): BP systolic 100–156; BP diastolic 42–73
[2021-07-20] MEDS: FUROSEMIDE 40MG VIAL IV SCH ×2 (04:20→18:40)
[2021-07-20] MEDS: NITROGLYCERIN 1GM OINT 1 INCH/1GM TD SCH ×3 (04:21→20:49)
[2021-07-20 05:58] LABS: HEMATOCRIT 31.7 % (36-48); MEAN CORPUSCULAR HEMOGLOBIN 28.9 pg (27.0-33.0); MEAN CORPUSCULAR HGB CONC 32.5 g/dL (32.0-36.0); MEAN CORPUSCULAR VOLUME 88.8 fL (79-99); RED BLOOD CELL COUNT(AUTO) 3.57 MIL/uL (4.00-5.50); RED CELL DISTRIBUTION WIDTH 13.3 % (11.0-15.5); WHITE BLOOD COUNT (AUTO) 8.4 K/uL (4.8-10.8)
[2021-07-20] MEDS: ALBUTEROL 0.083% 2.5 MG/3 ML INH IH SCH ×3 (06:00→18:00)
[2021-07-20] MEDS: IPRATROPIUM/ALBUTEROL SULFATE 3 ML SOLUTION IH SCH ×4 (06:25→18:34)
[2021-07-20 06:32] LABS: CREATININE 0.8 mg/dL (0.5-1.5); MAGNESIUM 1.8 mg/dL (1.80-2.40); PHOSPHORUS 4.6 mg/dL (2.5-4.9); POTASSIUM 5.1 mmol/L (3.5-5.1)
[2021-07-20] MEDS: INSULIN HUMULIN R 100 UNIT/ML 3ML SQ SCH ×4 (07:30→21:00)
[2021-07-20] MEDS: PANTOPRAZOLE 40 MG TAB DR PO SCH ×2 (08:48→20:48)
[2021-07-20] MEDS: LEVOFLOXACIN 500 MG TABLET PO SCH (08:48)
[2021-07-20] MEDS: ENOXAPARIN SODIUM 40 MG/0.4 ML SYRINGE SQ SCH (08:50)
[2021-07-20] MEDS: FLUTICASONE/VILANTEROL 1 EACH AER.POW.BA IH SCH (09:00)
[2021-07-20] MEDS: GUAIFENESIN-DM 200/20 MG 10 ML PO PRN (09:29)
[2021-07-20] MEDS ORDERED: LEVO500T90 PO (11:46)
[2021-07-20] MEDS ORDERED: DEXA6TAB PO (11:46)
[2021-07-20] MEDS ORDERED: GUAI5SYR PO (11:46)
[2021-07-20] MEDS ORDERED: IPRA3AMP24 IH (11:46)
[2021-07-20] MEDS: DOXYCYCLINE HYCLATE 100 MG TABLET PO SCH ×2 (14:38→20:48)
[2021-07-20] MEDS: DEXAMETHASONE SOD PHOSPHATE 4 MG/ML 1ML VIAL IVP SCH (20:49)
[2021-07-21] MEDS: IPRATROPIUM/ALBUTEROL SULFATE 3 ML SOLUTION IH SCH ×5 (00:30→23:15)
[2021-07-21 03:28] VITALS: BP 128/60
[2021-07-21] MEDS: NITROGLYCERIN 1GM OINT 1 INCH/1GM TD SCH ×3 (04:30→20:02)
[2021-07-21] MEDS: FUROSEMIDE 40MG VIAL IV SCH ×2 (06:09→14:21)
[2021-07-21] MEDS: INSULIN HUMULIN R 100 UNIT/ML 3ML SQ SCH ×4 (07:06→21:00)
[2021-07-21] MEDS: GUAIFENESIN-DM 200/20 MG 10 ML PO PRN (07:33)
[2021-07-21 07:50] VITALS: BP 140/66
[2021-07-21] MEDS: DOXYCYCLINE HYCLATE 100 MG TABLET PO SCH ×2 (08:22→20:02)
[2021-07-21] MEDS: LEVOFLOXACIN 500 MG TABLET PO SCH (08:22)
[2021-07-21] MEDS: PANTOPRAZOLE 40 MG TAB DR PO SCH ×2 (08:22→20:02)
[2021-07-21] MEDS: ENOXAPARIN SODIUM 40 MG/0.4 ML SYRINGE SQ SCH (08:27)
[2021-07-21] MEDS: FLUTICASONE/VILANTEROL 1 EACH AER.POW.BA IH SCH (09:00)
[2021-07-21 11:20] VITALS: BP 141/63
[2021-07-21 15:15] VITALS: BP 132/68
[2021-07-21 19:30] VITALS: BP 104/46
[2021-07-21] MEDS: DEXAMETHASONE SOD PHOSPHATE 4 MG/ML 1ML VIAL IVP SCH (20:03)
[2021-07-22 00:19] VITALS: BP 107/51
[2021-07-22] MEDS: FUROSEMIDE 40MG VIAL IV SCH (03:39)
[2021-07-22] MEDS: NITROGLYCERIN 1GM OINT 1 INCH/1GM TD SCH ×2 (03:40→13:55)
[2021-07-22 04:33] VITALS: BP 130/56
[2021-07-22] MEDS: ALBUTEROL 0.083% 2.5 MG/3 ML INH IH SCH ×2 (06:00→11:51)
[2021-07-22] MEDS: INSULIN HUMULIN R 100 UNIT/ML 3ML SQ SCH ×2 (06:04→11:30)
[2021-07-22] MEDS: IPRATROPIUM/ALBUTEROL SULFATE 3 ML SOLUTION IH SCH ×2 (07:05→11:53)
[2021-07-22 08:00] VITALS: BP 134/71
[2021-07-22] MEDS: FLUTICASONE/VILANTEROL 1 EACH AER.POW.BA IH SCH ×2 (09:00→09:25)
[2021-07-22] MEDS: PANTOPRAZOLE 40 MG TAB DR PO SCH (09:26)
[2021-07-22] MEDS: LEVOFLOXACIN 500 MG TABLET PO SCH (09:26)
[2021-07-22] MEDS: DOXYCYCLINE HYCLATE 100 MG TABLET PO SCH (09:26)
[2021-07-22] MEDS: ENOXAPARIN SODIUM 40 MG/0.4 ML SYRINGE SQ SCH (09:27)
[2021-07-22] MEDS: ACETAMINOPHEN 325 MG TAB PO PRN (09:47)
[2021-07-22 12:00] VITALS: BP 121/56
== END 2021-07-22 15:20 | disposition home or self-care (01) ==
LOC: EDH 12:33 → EDHIP 14:56 → 3BH 07-19 09:01
PROVIDERS: ADMIT Internal Medicine; ATTEND Internal Medicine
DX: J44.1 Chronic obstructive pulmonary disease with (acute) exacerbation (principal); I25.2 Old myocardial infarction; I48.91 Unspecified atrial fibrillation; K59.00 Constipation, unspecified; R09.02 Hypoxemia; J44.0 Chronic obstructive pulmonary disease with (acute) lower respiratory infection; I25.10 Atherosclerotic heart disease of native coronary artery without angina pectoris; E87.1 Hypo-osmolality and hyponatremia; E78.00 Pure hypercholesterolemia, unspecified; I10 Essential (primary) hypertension; D64.9 Anemia, unspecified; Z20.822 Contact with and (suspected) exposure to COVID-19; Z79.02 Long term (current) use of antithrombotics/antiplatelets; Z90.710 Acquired absence of both cervix and uterus; Z95.5 Presence of coronary angioplasty implant and graft; Z96.1 Presence of intraocular lens; Z98.1 Arthrodesis status; Z79.899 Other long term (current) drug therapy; E86.0 Dehydration
CPT/HCPCS: 36415 ×3; 36600; 71045 ×2; 71275; 80048 ×2; 80053; 81003; 82803; 82948 ×15; 83605; 83735 ×2; 83880; 84100 ×2; 84145 ×2; 84484; 85025 ×2; 85027; 86140; 87040 ×2; 87635; 87804 ×2; 87880; 93005; 94640 ×17; 94664; 94760 ×3; 96361 ×2; 96365; 96366; 96372; 96375; 97039 ×4; 97116 ×3; 97161; 99285; C9803; G0378 ×90; J0456; J0696; J1100 ×4; J1650 ×4; J1940 ×7; J7030 ×2; J7050; Q9967; 87088

== ENCOUNTER → 2021-08-18 | Outpatient (CLI) | payer OTHER ==
[~2021-08-18] MED LIST changes: -AMOX-429 PO; +DEXA6TAB PO; -FLUT16H NASAL; +FLUT1BLS15 PO; -FLUT8AER2 IH; +FURO20TA4 PO; +GUAI5SYR PO; +LEVO500T90 PO; -PRED20TA3 PO
== END | disposition home or self-care (01) ==
LOC: RAH 14:16
PROVIDERS: ATTEND Internal Medicine Critical Care Medicine
DX: J18.9 Pneumonia, unspecified organism (principal); U09.9 Post COVID-19 condition, unspecified; J98.4 Other disorders of lung; J98.11 Atelectasis
CPT/HCPCS: 71250

== ENCOUNTER 2022-07-02 01:18 | Observation (INO) | payer OTHER ==
[2022-07-02] VITALS (8 sets, daily range): BP systolic 110–135; BP diastolic 41–65
[~2022-07-02] VITALS: Ht 167.6 cm; Wt 65.1 kg
[~2022-07-02 01:18] MED LIST changes: -ALBU8.5H8 IH; +AREDS 2 PO; +CRAN500T4 PO; +DOXY100C5 PO; -ESTR1TAB21 PO; +ESTR1TAB21 VG; +FURO40TA5 PO; -GUAI5SYR PO; +GUAI600T50 PO; -IPRA3AMP24 IH; +IPRNEB IH; +ISOS60TA77 PO; -Isosorbide Mono 30MG Sr Tab PO; -LEVO500T90 PO; -METO25 PO; +METO50TA18 PO; +POTA-79 PO; -PRAV20TA4 PO; +PRAV40TA3 PO; +RANO10005 PO; +TIOT18CA3 IH; +[UNRECOGNIZED DRUG - REMARK] PO
[2022-07-02] MEDS ORDERED: ACETAMINOPHEN 325 MG TAB PO PRN (03:30)
[2022-07-02] MEDS ORDERED: ONDANSETRON 4MG INJ IVP PRN (03:30)
[2022-07-02] MEDS ORDERED: LACTULOSE 20 GM/30 ML UDCUP PO PRN (03:30)
[2022-07-02] MEDS ORDERED: DOCUSATE SODIUM 100 MG CAP PO PRN (03:30)
[2022-07-02] MEDS ORDERED: TEMAZEPAM 15 MG CAPSULE PO PRN (03:30)
[2022-07-02] MEDS ORDERED: HYDRALAZINE 20MG/ML VIAL IV PRN (03:30)
[2022-07-02] MEDS ORDERED: CLONIDINE HCL 0.1 MG TABLET PO PRN (03:30)
[2022-07-02] MEDS ORDERED: ACETAMINOPHEN 650 MG SUPPOSITORY RC PRN (03:30)
[2022-07-02] MEDS ORDERED: LABETALOL 20MG SYG IV PRN (03:30)
[2022-07-02] MEDS ORDERED: IPRATROPIUM 0.5 MG/2.5 ML INH IH PRN ×2 (03:30→17:00)
[2022-07-02] MEDS ORDERED: ALBUTEROL 0.083% 2.5 MG/3 ML INH IH PRN (03:30)
[2022-07-02] MEDS: INSULIN HUMULIN R 100 UNIT/ML 3ML SQ SCH ×4 (06:08→21:00)
[2022-07-02 06:23] LABS: BASOPHILS % (AUTO) 0.3 % (0.0-5.0); EOSINOPHILS % (AUTO) 3.4 % (0.0-8.0); HEMATOCRIT 22.8 % (36-48); MEAN CORPUSCULAR HEMOGLOBIN 29.8 pg (27.0-33.0); MEAN CORPUSCULAR HGB CONC 32.9 g/dL (32.0-36.0); MEAN CORPUSCULAR VOLUME 90.5 fL (79-99); MONOCYTES % (AUTO) 10.4 % (3.0-13.0); NEUTROPHILS % (AUTO) 71.3 % (40.0-77.0); PLATELET COUNT (AUTO) 198 K/uL (130-400); RED BLOOD CELL COUNT(AUTO) 2.52 MIL/uL (4.00-5.50); RED CELL DISTRIBUTION WIDTH 17.4 % (11.0-15.5); WHITE BLOOD COUNT (AUTO) 6.6 K/uL (4.8-10.8)
[2022-07-02 06:35] LABS: MAGNESIUM 1.7 mg/dL (1.80-2.40); PHOSPHORUS 3.4 mg/dL (2.5-4.9); POTASSIUM 3.9 mmol/L (3.5-5.1)
[2022-07-02 07:02] LABS: B-TYPE NATRIURETIC PEPTIDE 218 pg/mL (0-100)
[2022-07-02] MEDS ORDERED: NITROGLYCERIN 0.4 MG SL TAB SL PRN ×2 (08:30→14:30)
[2022-07-02] MEDS ORDERED: FUROSEMIDE 40MG VIAL IV SCH (09:00)
[2022-07-02] MEDS ORDERED: ENOXAPARIN SODIUM 40 MG/0.4 ML SYRINGE SQ SCH (09:00)
[2022-07-02] MEDS ORDERED: APIX5TAB PO (13:50)
[2022-07-02] MEDS ORDERED: DRON400T7 PO (13:50)
[2022-07-02] MEDS ORDERED: POLY17PO4 PO (13:50)
[2022-07-02] MEDS ORDERED: LISI10TA24 PO (13:50)
[2022-07-02] MEDS ORDERED: PRED10TA3 PO (13:50)
[2022-07-02] MEDS ORDERED: APIXABAN 5 MG TABLET PO SCH (14:30)
[2022-07-02] MEDS ORDERED: METOPROLOL TARTRATE 50 MG TAB PO SCH (14:30)
[2022-07-02] MEDS ORDERED: ISOSORBIDE MONO 60MG SR TAB PO SCH (14:30)
[2022-07-02] MEDS ORDERED: MAGNESIUM 2GM PREMIX 50ML 50 ML IV PRN (18:00)
[2022-07-02] MEDS ORDERED: ATORVASTATIN 40 MG TABLET PO SCH (21:00)
[2022-07-02] MEDS ORDERED: DOCUSATE SODIUM 100 MG CAP PO SCH (21:00)
[2022-07-02] MEDS ORDERED: FUROSEMIDE 20 MG TABLET PO SCH (21:00)
[2022-07-02] MEDS ORDERED: ATORVASTATIN 10 MG TABLET PO SCH (21:00)
[2022-07-02] MEDS: LISINOPRIL 10 MG TABLET PO SCH (21:09)
[2022-07-02] MEDS: METOPROLOL TARTRATE 50 MG TAB PO SCH (21:10)
[2022-07-02] MEDS: APIXABAN 5 MG TABLET PO SCH (21:10)
[2022-07-02] MEDS: RANOLAZINE 500 MG TAB.SR.12H PO SCH (21:11)
[2022-07-02] MEDS: KCL 20 MEQ ERTAB PO SCH (21:26)
[2022-07-03 03:47] VITALS: BP 113/49
[2022-07-03 04:00] LABS: HEMATOCRIT 23.6 % (36-48); MEAN CORPUSCULAR HEMOGLOBIN 29.2 pg (27.0-33.0); MEAN CORPUSCULAR HGB CONC 31.8 g/dL (32.0-36.0); MEAN CORPUSCULAR VOLUME 91.8 fL (79-99); RED BLOOD CELL COUNT(AUTO) 2.57 MIL/uL (4.00-5.50); RED CELL DISTRIBUTION WIDTH 17.3 % (11.0-15.5); WHITE BLOOD COUNT (AUTO) 5.1 K/uL (4.8-10.8)
[2022-07-03 04:17] LABS: CREATININE 0.9 mg/dL (0.5-1.5); MAGNESIUM 1.7 mg/dL (1.80-2.40); PHOSPHORUS 3.4 mg/dL (2.5-4.9); POTASSIUM 3.8 mmol/L (3.5-5.1)
[2022-07-03] MEDS: INSULIN HUMULIN R 100 UNIT/ML 3ML SQ SCH ×2 (07:30→11:30)
[2022-07-03 08:00] VITALS: BP 93/38
[2022-07-03] MEDS: LISINOPRIL 10 MG TABLET PO SCH (09:00)
[2022-07-03] MEDS ORDERED: [UNRECOGNIZED DRUG - OTHER] IH SCH (09:00)
[2022-07-03] MEDS ORDERED: PREDNISONE 10 MG TABLET PO SCH (09:00)
[2022-07-03] MEDS ORDERED: VILANTER IH SCH (09:00)
[2022-07-03] MEDS ORDERED: FUROSEMIDE 40 MG TABLET PO SCH (09:00)
[2022-07-03] MEDS ORDERED: FLUTICASONE IH SCH (09:00)
[2022-07-03] MEDS ORDERED: POLYETHYLENE GLYCOL 3350 17 GM POWD.PACK PO SCH (09:00)
[2022-07-03] MEDS: METOPROLOL TARTRATE 50 MG TAB PO SCH (09:00)
[2022-07-03] MEDS ORDERED: DRONEDARONE HYDROCHLORIDE 400 MG TABLET PO SCH (09:00)
[2022-07-03] MEDS ORDERED: UMECLIDIN IH SCH (09:00)
[2022-07-03] MEDS ORDERED: ISOSORBIDE MONO 60MG SR TAB PO SCH (09:00)
[2022-07-03] MEDS: KCL 20 MEQ ERTAB PO SCH (09:51)
[2022-07-03] MEDS: APIXABAN 5 MG TABLET PO SCH (09:51)
[2022-07-03] MEDS: RANOLAZINE 500 MG TAB.SR.12H PO SCH (09:52)
[2022-07-03 12:00] VITALS: BP 112/70
== END 2022-07-03 15:15 | disposition home or self-care (01) ==
LOC: 2DH 02:25
PROVIDERS: ADMIT Internal Medicine Pulmonary Disease; ATTEND Internal Medicine Pulmonary Disease
DX: S80.822A Blister (nonthermal), left lower leg, initial encounter (principal); Z20.822 Contact with and (suspected) exposure to COVID-19; I13.0 Hypertensive heart and chronic kidney disease with heart failure and stage 1 through stage 4 chronic kidney disease, or unspecified chronic kidney disease; I50.32 Chronic diastolic (congestive) heart failure; N18.31 Chronic kidney disease, stage 3a; R60.0 Localized edema; E87.1 Hypo-osmolality and hyponatremia; I25.10 Atherosclerotic heart disease of native coronary artery without angina pectoris; I48.0 Paroxysmal atrial fibrillation; J90 Pleural effusion, not elsewhere classified; J44.9 Chronic obstructive pulmonary disease, unspecified; R79.89 Other specified abnormal findings of blood chemistry; Z87.891 Personal history of nicotine dependence; Z88.6 Allergy status to analgesic agent; Z90.710 Acquired absence of both cervix and uterus; Z95.5 Presence of coronary angioplasty implant and graft; Z86.16 Personal history of COVID-19; Z79.899 Other long term (current) drug therapy; Z98.890 Other specified postprocedural states; Z90.49 Acquired absence of other specified parts of digestive tract; Z79.82 Long term (current) use of aspirin; Y92.89 Other specified places as the place of occurrence of the external cause; Y93.89 Activity, other specified; Y99.8 Other external cause status
CPT/HCPCS: 96374; 96372; 83735 ×2; 84100 ×2; 84484; 80048 ×2; 83880 ×2; 85025; 85378; 87804 ×2; 82948 ×6; 36415 ×2; 87635; 71045; 78582; 93005 ×2; 85027; 93306; 93356; G0378 ×33; J3475; J1650; J1940; A9540; A9558; J7512